=== PATIENT | female | born 1985 | race Caucasian/White ===

== ENCOUNTER 2018-06-27 05:10 | Inpatient (IN) | payer OTHER ==
[2018-06-27] MEDS ORDERED: MINERAL OIL PO PRN ×2 (05:51→06:26)
[2018-06-27] MEDS ORDERED: BRETHINE SUB-Q PRN (05:51)
[2018-06-27] MEDS ORDERED: SUBLIMAZE IV PRN (05:51)
[2018-06-27] MEDS ORDERED: BRETHINE IVP PRN (05:51)
[2018-06-27] MEDS ORDERED: XYLOCAINE 2% INFILTRATI ONE (05:51)
[2018-06-27] MEDS ORDERED: LACTATED RINGERS 1,000 ML IV SCH (06:00)
[2018-06-27] MEDS ORDERED: PITOCin/NS 20 UNIT/1000ML DRIP 20 UNITS/1,000 ML BAG IV SCH (06:00)
[2018-06-27] MEDS ORDERED: NACL 0.9% 1000 ML 1,000 ML ONE ×2 (06:29→06:30)
--- NOTE | 2018-06-27 06:33 | History and Physical Report ---
History of Present Illness Date of examination: 06/27/18 Date of admission: 06/27/18 05:33 Chief complaint: Intense Labor Pains History of present illness: Early entry to care at [facility], uncomplicated course. Past History Past Medical History: no pertinent history Past Surgical History: angioplasty Family/Genetic History: diabetes (PGM) Social history: no significant social history, - Obstetrical History Expected Date of Delivery: 07/03/18 Actual Gestation: 39 Week(s) 1 Day(s) : 5 Para: 3 Number of Pregnancies: 3 Spontaneous Abortions: 1 Number of Living Children: 3 #2 Infant Gender: Female year: 2,[birth year] Birthweight: 3.799 kg Method of Delivery: Vaginal Gestational age at delivery: 40 Complications: none #1 Infant Gender: Female year: 2,[birth year] Birthweight: 3.402 kg Method of Delivery: Vaginal Gestational age at delivery: 38 #3 Gender: Male year: 2,012 Birthweight: 3.43 kg Method of Delivery: Vaginal Gestational age at delivery: 40 Medications and Allergies Allergies Allergy/AdvReac Type Severity Reaction Status Date / Time No Known Allergies Allergy Unverified 06/27/18 05:49 Active Meds: Active Medications Ephedrine Sulfate (Ephedrine Sulfate) 10 mg IV Q2M PRN PRN Reason: Hypotension Fentanyl (Sublimaze) 100 mcg IV Q2H PRN PRN Reason: Labor Pain Lactated Ringer's (Lactated Ringers) 1,000 mls @ 125 mls/hr IV DIRECT DEREK Oxytocin/Sodium Chloride (Pitocin/Ns 20 Unit/1000ml Drip) 20 units in 1,000 mls @ 125 mls/hr IV DIRECT DEREK Oxytocin/Sodium Chloride (Pitocin/Ns 30 Unit/500ml) 30 units in 500 mls @ 2 mls/hr IV TITR DEREK; Protocol Oxytocin/Sodium Chloride (Pitocin/Ns 30 Unit/500ml) 30 units in 500 mls @ 1 mls/hr IV TITR DEREK; Protocol Mineral Oil (Mineral Oil) 30 ml PO QHS PRN PRN Reason: Constipation Mineral Oil (Mineral Oil) 30 ml PO QHS PRN PRN Reason: Constipation Terbutaline Sulfate (Brethine) 0.25 mg SUB-Q ONCE PRN PRN Reason: Hyperstimulation/Hypertonicity Terbutaline Sulfate (Brethine) 0.25 mg IVP ONCE PRN PRN Reason: Hyperstimulation/Hypertonicity Review of Systems All systems: negative - Vital Signs Vital signs: Vital Signs Pulse BP 67 121/66 06/27/18 05:20 06/27/18 05:20 Temp Pulse Resp BP Pulse Ox 66 122/75 06/27/18 06:26 06/27/18 06:26 - Physical Exam Breasts: Positive: normal Cardiovascular: Regular rate Lungs: Positive: Clear to auscultation, Normal air movement Abdomen: Positive: normal appearance, soft, normal bowel sounds Genitourinary (Female): Positive: normal external genitalia, normal perenium Vagina: Positive: other (thick, green mucous like vaginal discharge ) Uterus: Positive: enlarged - Obstetrical FHR: category 1 Uterine Contraction Monitor Mode: External Cervical Dilatation: 8 (thick, green mucous-like meconium fluid) Cervical Effacement Percentage: 90 station: -2 Uterine Contraction Pattern: Regular Uterine Tone Measurement Phase: Resting Uterine Contraction Intensity: Moderate Results All other labs normal. Assessment and Plan A: IUP @ 39 1/7 Weeks Category I Tracing Active Labor Particulate Meconium Stained fluids GBS Negative P: Admit to L&D per Routine Orders IUPC Placed Amnioinfusion Pitocin Augmentation IV Pain Control
[2018-06-27 06:50] LABS: Hematocrit 40.1 % (30.3-42.9); Hemoglobin 14.2 gm/dl (10.1-14.3); Mean Corpuscular HGB Conc 35 % (30-34); Mean Corpuscular Volume 95 fl (79-97); Platelet Count 198 K/mm3 (140-440); Red Cell Distribution Width 13.2 % (13.2-15.2)
[2018-06-27] MEDS ORDERED: PITOCin/NS 30 UNIT/500ML 30 UNITS/500 ML BAG IV SCH ×2 (07:00)
--- NOTE | 2018-06-27 07:15 | Procedure Note ---
OB Delivery Note - Delivery Date of Delivery: 06/27/18 (0653) Surgeon: GRICELDA PENN Estimated blood loss: 200cc - Vaginal Delivery presentation: vertex Delivery position: OA Intrapartum events: meconium Delivery induction: none Delivery augmentation: pitocin Delivery monitor: external FHT, external uterine Route of delivery: Delivery placenta: spontaneous Delivery cord: nuchal cord, 3 umbilical vessels Episiotomy: none Delivery laceration: none Anesthesia: none Delivery comments: of a live 6'8 male over a intact perineum without pain control with Apgars of 8 and 9 at 0653 on 06/27/2018. Nuchal cord x 1 easily manually reduced on the perineum prior to delivery of the anterior shoulder. Cord double clamped and cut by SHERIDAN Penn, infant not stimulated and handed directly to awaiting NICU/RESP team. Spontaneous delivery of placenta complete and intact with Cai side presenting at 0657. Fundus firm and midline located 4 below the U. Lochia is scant. Placenta to pathology. - Infant A at 1 minute: 8 at 5 minutes: 9 Infant Gender: Male (6'8)
[2018-06-27] MEDS ORDERED: BENADRYL PO PRN (08:00)
[2018-06-27] MEDS ORDERED: SODIUM CHLORIDE FLUSH SYRINGE 10 ML IV PRN (08:00)
[2018-06-27] MEDS ORDERED: TYLENOL PO PRN (08:00)
[2018-06-27] MEDS ORDERED: LANSINOH TP PRN (08:00)
[2018-06-27] MEDS ORDERED: NORCO 5/325 PO PRN (08:00)
[2018-06-27] MEDS ORDERED: TUCKS PAD TP PRN (08:00)
[2018-06-27] MEDS: IBUPROFEN PO SCH ×2 (09:44→15:00)
[2018-06-27] MEDS ORDERED: AFLURIA QUAD 2018-2019 SYRINGE IM ONE (12:00)
[2018-06-27 19:58] LABS: Hematocrit 33.6 % (30.3-42.9); Hemoglobin 11.6 gm/dl (10.1-14.3)
[2018-06-28] MEDS: IBUPROFEN PO SCH ×3 (00:22→12:25)
--- NOTE | 2018-06-28 11:05 | Progress Note ---
Assessment and Plan A:PPD#1 s/p Stable P: Continue routine PP orders Discharge home Subjective - Subjective Date of service: 06/28/18 Principal diagnosis: PPD#1 s/p Patient reports: appetite normal, voiding normally, pain well controlled, flatus, ambulating normally : doing well, nursing well Objective - Vital Signs Latest vital signs: Vital Signs Temp Pulse Resp BP BP Pulse Ox 06/28/18 08:20 98.3 F 60 19 124/75 97 06/28/18 05:29 18 06/28/18 00:22 18 06/27/18 23:51 98.9 F 63 20 107/59 95 06/27/18 16:38 98.3 F 59 L 18 111/65 06/27/18 16:00 18 06/27/18 15:00 18 06/27/18 12:20 98.7 F 69 18 102/62 96 Intake and Output 06/27/18 06/28/18 06/28/18 23:59 07:59 15:59 Intake Total 600 120 Balance 600 120 Intake: Oral 600 120 Other: Total, Intake Amount 240 120 # Voids Void 1 1 1 - Exam Breasts: Present: normal, Cardiovascular: Present: Regular rate, Normal S1, Normal S2, No murmurs Lungs: Present: Clear to auscultation, Normal air movement Abdomen: Present: normal appearance, soft, normal bowel sounds. Absent: diste ntion Vulva: both: normal Uterus: Present: firm, fundal height at umbilicus Extremities: Present: normal Deep Tendon Reflex Grade: Normal +2
--- NOTE | 2018-06-28 11:06 | Discharge Summary ---
Providers - Providers Date of Admission: 06/27/18 05:33 Date of discharge: 06/28/18 Attending physician: JOHN AGUILAR MD Primary care physician: JOHN AGUILAR MD Hospitalization Reason for admission: active labor, IUP at term Delivery: Procedure details: See delivery note Episiotomy: none Laceration: none Other procedures: none complications: none Discharge diagnosis: IUP at term delivered [place] baby: male Condition at discharge: Good Disposition: DC-01 TO HOME OR SELFCARE Plan - Provider Discharge Summary Activity: routine, no sex for 6 weeks, no heavy lifting 4 weeks, no strenuous exercise Diet: routine Instructions: routine Additional instructions: [] Smoking cessation referral if applicable(refer to patient education folder for contact #) [] Refer to [facility]'s [facility] Booklet Call your doctor immediately for: * Fever > 100.5 * Heavy vaginal bleeding ( >1 pad per hour) * Severe persistent headache * Shortness of breath * Reddened, hot, painful area to leg or breast * Drainage or odor from incision. * Keep incision clean and dry at all times and follow doctor's instructions regarding bathing/showering - Follow up plan Follow up: JOHN AGUILAR MD [Primary Care Provider] - 6 Weeks
[2018-06-28 15:52] VITALS: BP 140/59
== END 2018-06-28 17:40 | disposition home or self-care (01) | DRG 807 ==
LOC: TRG 05:10 → LD 05:33 → TRG 05:33 → OB 08:40
PROVIDERS: ADMIT Obstetrics & Gynecology; ATTEND Obstetrics & Gynecology
PROC: 10E0XZZ Delivery of Products of Conception, External Approach (ICD-10-PCS; principal; 2018-06-27)
DX: O77.0 Labor and delivery complicated by meconium in amniotic fluid (principal); Z37.0 Single live birth; Z3A.39 39 weeks gestation of pregnancy; Z83.3 Family history of diabetes mellitus; O69.81X0 Labor and delivery complicated by cord around neck, without compression, not applicable or unspecified
CPT/HCPCS: 36415; 85014; 85018; 85027; 86592; 86850; 86900; 86901; 88307; 90686; G0378; J2590; J7030; J7120